=== PATIENT | male | born 1970 | race Caucasian/White ===

== ENCOUNTER 2020-01-23 13:05 | Emergency (ER) | payer OTHER, SELFPAY ==
[2020-01-23 13:18] VITALS: BP 186/93; PULSE 86; RESP 14; TEMP 36.7; O2SAT 96
--- NOTE | 2020-01-23 13:22 | DI.RAD.S_ITS ---
PROCEDURE: XR FINGER LT MIN 2V INDICATIONS: fall w/ pain` TECHNIQUE: AP hand, 2 views of the left lung acquired. COMPARISON: None. FINDINGS: Bones: Dorsal subluxation or dislocation at the thumb IP joint. No fractures identified. No suspicious bony lesions. Soft tissues: No suspicious soft tissue calcifications. IMPRESSION: Dorsal subluxation or dislocation at the thumb IP joint. Dictated by: Bernardo Mcgregor M.D. on 01/23/2020 at 12:34 Approved by: Bernardo Mcgergor M.D. on 01/23/2020 at 12:35
--- NOTE | 2020-01-23 14:16 | ED.UPPEXIN ---
HPI - Extremity Injury (Upper) General Chief Complaint: Extremity Injury, Upper Stated Complaint: Possible Thumb Dislocation, Lt Hand Time Seen by Provider: 01/23/20 14:13 Source: patient Mode of arrival: Ambulatory Limitations: no limitations History of Present Illness HPI narrative: CC: dislocated injured Left tumb. HPI: The patient is a 50-year-old male who states that he was getting out of the shower when he slipped and fell and jammed his left thumb dislocating the patient's distal phalanx. He denies any other injury to his head neck back, chest arms or legs. He has had no shortness of breath cough. No belly pain nausea or vomiting. Related Data Home Medications Medication Instructions Recorded Confirmed No Known Home Medications 01/23/20 01/23/20 Allergies Allergy/AdvReac Type Severity Reaction Status Date / Time Penicillins Allergy Unknown Verified 01/23/20 13:21 Review of Systems Review of Systems Narrative: Review of systems were all negative except for those mentioned in the history of present illness. Patient History Social History Smoking Status: Never smoker Smoking Status: Never smoker alcohol intake frequency: 0-2 drinks per day Substance Use Type: does not use Exam Narrative Exam Narrative: PHYSICAL EXAM: CONSTITUTIONAL: Awake, Alert, Oriented, Coherent, Cooperative in NAD. Does not appear toxic or ill. HEAD: AT/NC EENT: PERRL, EXTREMITIES: The patient has a deformed dorsally dislocated distal phalanx of his left thumb. Capillary refill and sensation is intact. SKIN: No rash, bruising, petechiae or purpura. NEURO: Awake, alert, oriented, conversive, cranial nerves II-XII are symmetrical , moves all 4 extremities and is ambulatory. MENTAL HEALTH: Does not appear anxious or depressed. Initial Vital Signs Initial Vital Signs: Vital Signs Temperature 98.1 F 01/23/20 13:18 Pulse Rate 86 01/23/20 13:18 Respiratory Rate 14 01/23/20 13:18 Blood Pressure 186/93 H 01/23/20 13:18 Pulse Oximetry 96 01/23/20 13:18 Course Course Course Narrative: 1416 my review of the patient's x-ray reveals a dorsal dislocation/ subluxation of the distal phalanx of his thumb at the DIP joint. 1424: Subluxed/dislocated distal phalanx of the left thumb was relocated without any anesthesia. Patient tolerated the procedure well and a thumb spica splint ordered. The distal phalanx was held and pulled on while I pushed on the base of the distal phalanx distally and it popped and snapped back into place quickly. Orders Ordered: ED Orders 01/23/20 13:22 XR finger LT min 2V Stat Vital Signs Vital signs: Vital Signs - 8 hr 01/23/20 13:18 01/23/20 15:07 Temperature 98.1 F Pulse Rate 86 84 Respiratory Rate 14 16 Blood Pressure 186/93 H 158/84 H Pulse Oximetry 96 95 Discharge Plan Departure Patient Disposition: Home Clinical Impression: Dislocation of finger Qualifiers: Encounter type: initial encounter Qualified Code(s): S63.259A - Unspecified dislocation of unspecified finger, initial encounter Discharge Date/Time: 01/23/20 15:09 Instructions: Finger Dislocation Activity Restrictions/Additional Instructions: 1. wear the Thumb spika splint until either seen by your family physician or the orthopedic surgeon to be sure that to the tendons heel. 2. For swelling apply ice or cold compresses every 2 to 3 hours for 20-30 minutes as tolerated. 3. For pain and discomfort take 2-3, 200 mg ibuprofen tablets every 6 hours. Prescriptions: No Action No Known Home Medications RF: 0 Referrals: Hemant Collazo MD [Physician] - (Dislocated distal phalanx of his left thumb. He is left-hand dominant.)
[2020-01-23 15:07] VITALS: BP 158/84; PULSE 84; RESP 16; O2SAT 95
== END 2020-01-23 15:09 | disposition home or self-care (01) ==
PROVIDERS: Emergency Provider Emergency Medicine
DX: S63.259A Unspecified dislocation of unspecified finger, initial encounter (principal); W01.198A Fall on same level from slipping, tripping and stumbling with subsequent striking against other object, initial encounter
CPT/HCPCS: 73140; 99281; 99283